=== PATIENT | female | born 1980 | race Caucasian/White ===

== ENCOUNTER 2022-05-26 13:05 | Outpatient (CLI) | payer MEDICARE, MEDICAID, SELFPAY | END 2022-05-26 13:06 | disposition home or self-care (01) | PROVIDERS: PCP Nurse Practitioner Family; Visit Provider Nurse Practitioner Family | DX: Z01.10 Encounter for examination of ears and hearing without abnormal findings (principal) | CPT/HCPCS: 99199 ==

== ENCOUNTER 2023-08-10 08:00 | Outpatient (CLI) | payer MEDICARE, MEDICAID, SELFPAY | END 2023-08-10 08:01 | disposition home or self-care (01) | LOC: ANHAUDIO 08:00 | PROVIDERS: PCP Internal Medicine; Visit Provider Internal Medicine | DX: H91.90 Unspecified hearing loss, unspecified ear (principal) | CPT/HCPCS: 92555; 92567; 92579 ==

== ENCOUNTER 2023-11-21 08:07 | Outpatient (CLI) | payer MEDICARE, MEDICAID, SELFPAY | END 2023-11-21 08:08 | disposition home or self-care (01) | LOC: ANHAUDIO 08:08 | PROVIDERS: PCP Internal Medicine; Visit Provider Internal Medicine | DX: H91.90 Unspecified hearing loss, unspecified ear (principal) | CPT/HCPCS: 92567 ==